=== PATIENT | female | born 2000 | race Caucasian/White ===

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

== ENCOUNTER → 2024-05-28 | Outpatient (CLI) | payer OTHER ==
[2024-05-28 11:18] LABS: Basophils % (A) 0 %; Eosinophils # (A) 0.2 k/uL (0-0.7); Eosinophils % (A) 2 %; HCT 29.5 % (34.0-46.0); HGB 9.9 gm/dL (11.4-16.0); Hypochromasia Slight; Lymphocytes # (A) 2.1 k/uL (1.0-4.8); Lymphocytes % (A) 23 %; MCH 29.4 pg (25.0-35.0); MCHC 33.6 g/dL (31.0-37.0); MCV 87.5 fL (80.0-100.0); Mean Platelet Volume 8.5; Monocytes # (A) 0.6 k/uL (0-1.0); Monocytes % (A) 6 %; Neutrophils # (A) 5.9 k/uL (1.3-7.7); Neutrophils % (A) 65 %; Platelet Count 248 k/uL (150-450); RBC 3.37 m/uL (3.80-5.40); RDW 12.8 % (11.5-15.5); WBC 9.1 k/uL (3.8-10.6)
[2024-05-28 11:44] LABS: Appearance,Urine Clear (Clear); Bilirubin,Urine Negative (Negative); Blood,Urine Negative (Negative); Color,Urine Colorless; Creatinine,Urine Random 27.9 mg/dL; Glucose,Urine (UA) Negative (Negative); Ketones,Urine Negative (Negative); Leukocyte Esterase,Urine Negative (Negative); Nitrite,Urine Negative (Negative); Protein,Urine Negative (Negative); Protein/Creatinine Ratio,Urine 0.573; Specific Gravity,Urine 1.003 (1.001-1.035); Urobilinogen,Urine <2.0 mg/dL (<2.0)
[2024-05-28 11:45] LABS: ALT 17 U/L (4-34); AST 24 U/L (14-36); African American GFR (CKD) >90 (>60 ml/min/1.73 sqM); Blood Urea Nitrogen 5 mg/dL (7-17); LDH 164 U/L (120-246); Non-African American GFR(CKD) >90 (>60 ml/min/1.73 sqM); Uric Acid 4.4 mg/dL (3.7-7.4)
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
[2024-05-28 12:09] VITALS: BP 142/95; PULSE 120; RESP 18; TEMP 97.1
== END ==
LOC: FBPOP 10:08
PROVIDERS: ATTEND Obstetrics & Gynecology
DX: O41.8X31 Other specified disorders of amniotic fluid and membranes, third trimester, fetus 1 (principal); Z3A.37 37 weeks gestation of pregnancy
CPT/HCPCS: 59025; 84112; 82570; 84156; 82565; 83615; 84450; 84460; 84520; 84550; 85025; 81003; 76815; G0463; 99213

== ENCOUNTER 2024-06-01 00:03 | Inpatient (IN) | payer OTHER ==
[2024-06-01] MEDS ORDERED: TERBUTALINE 1 MG/ML VIAL SQ PRN (00:44)
[2024-06-01] MEDS ORDERED: miSOPROStoL 200 MCG TAB PO PRN (00:44)
[2024-06-01] MEDS ORDERED: METHYLERGONOVINE 0.2 MG/ML 1 ML AMP IM PRN (00:44)
[2024-06-01] MEDS ORDERED: TRANEXAMIC 1,000 MG/100ML-NACL 1,000 MG in EMPTY BAG 1 BAG IV PRN (00:44)
[2024-06-01] MEDS ORDERED: miSOPROStoL 200 MCG TAB RECTAL PRN (00:44)
[2024-06-01] MEDS ORDERED: OXYTOCIN 10 UNIT/ML 1 ML VIAL IM PRN (00:44)
[2024-06-01] MEDS ORDERED: CARBOPROST TROMETHAMINE 250 MCG/ML 1 ML AMP IM PRN (00:44)
[2024-06-01] MEDS: NALBUPHINE 10 MG/ML (10 ML MDV) IV PRN (01:51)
[2024-06-01] MEDS: LACTATED RINGERS 1,000 ML IV SCH (01:54)
[2024-06-01 01:58] LABS: Basophils % (A) 0 %; Eosinophils # (A) 0.1 k/uL (0-0.7); Eosinophils % (A) 1 %; HCT 28.8 % (34.0-46.0); HGB 9.4 gm/dL (11.4-16.0); Lymphocytes # (A) 2.6 k/uL (1.0-4.8); Lymphocytes % (A) 25 %; MCH 28.1 pg (25.0-35.0); MCHC 32.4 g/dL (31.0-37.0); MCV 86.5 fL (80.0-100.0); Mean Platelet Volume 8.2; Monocytes # (A) 0.6 k/uL (0-1.0); Monocytes % (A) 6 %; Neutrophils # (A) 6.9 k/uL (1.3-7.7); Neutrophils % (A) 64 %; Platelet Count 263 k/uL (150-450); RBC 3.33 m/uL (3.80-5.40); RDW 12.8 % (11.5-15.5); WBC 10.7 k/uL (3.8-10.6)
[2024-06-01 02:03] LABS: ALT 17 U/L (4-34); AST 25 U/L (14-36); African American GFR (CKD) >90 (>60 ml/min/1.73 sqM); Blood Urea Nitrogen 5 mg/dL (7-17); LDH 191 U/L (120-246); Non-African American GFR(CKD) >90 (>60 ml/min/1.73 sqM); Uric Acid 4.1 mg/dL (3.7-7.4)
[2024-06-01 02:09] VITALS: RESP 16
[2024-06-01 02:09] LABS: INR 0.9 (<1.2); Partial Thromboplastin Time 22.2 sec (22.0-30.0); Prothrombin Time 9.9 sec (10.0-12.5)
[2024-06-01 02:50] LABS: Creatinine,Urine Random 47.9 mg/dL; Protein/Creatinine Ratio,Urine 0.355
[2024-06-01 03:02] LABS: Appearance,Urine Clear (Clear); Bilirubin,Urine Negative (Negative); Blood,Urine Negative (Negative); Color,Urine Colorless; Glucose,Urine (UA) Negative (Negative); Ketones,Urine Negative (Negative); Leukocyte Esterase,Urine Trace (Negative); Nitrite,Urine Negative (Negative); PH, Urine 6.5 (5.0-8.0); Protein,Urine Negative (Negative); RBC,Urine 1 /hpf (0-5); Specific Gravity,Urine 1.006 (1.001-1.035); Squamous Epithelial Cell,Urine <1 /hpf (0-4); Urobilinogen,Urine <2.0 mg/dL (<2.0); WBC,Urine 8 /hpf (0-5)
--- NOTE | 2024-06-01 06:44 | P.HPOB ---
History of Present Illness H&P Date: 06/01/24 Chief Complaint: Leaking of fluid Ms. Rivera is a 23 year old at 38 weeks and 0 days with EDC of 06/15/24 by LMP consistent with 15 week US who presents with SROM with clear amniotic fluid and regular uterine contractions. The has been essentially uncomplicated aside from elevated blood pressures noted in the 37th week of . Today when she presents she has elevated blood pressures with a few intermittent severe-range blood pressures. She is asymptomatic and denies headache, visual disturbances, and RUQ pain. PIH labs are within normal limits aside from a urine P:C of 0.3. The fetus is estimated in the 52%ile based on a 36 week growth US. work-up: blood type O positive, antibody screen negative, rubella immune, VDRL non-reactive, HBsAg negative, HIV negative, HCV Ab non-reactive, gonorrhea negative, chlamydia negative, 1 hour GTT wnl, GBS negative. Past Medical History Past Medical History: No Reported History Additional Past Medical History / Comment(s): "excruciating pain intermittently before and after eating." History of Any Multi-Drug Resistant Organisms: None Reported Past Surgical History: Adenoidectomy, Tonsillectomy Past Anesthesia/Blood Transfusion Reactions: No Reported Reaction Past Psychological History: No Psychological Hx Reported Smoking Status: Never smoker Past Alcohol Use History: None Reported Past Drug Use History: None Reported - Past Family History Mother Family Medical History: No Reported History Medications and Allergies Home Medications Medication Instructions Recorded Confirmed Type Vit No.179/Iron/Folic 1 tab PO ONCE 05/28/24 06/01/24 History [ Tablet] Allergies Allergy/AdvReac Type Severity Reaction Status Date / Time No Known Allergies Allergy Verified 05/28/24 10:17 Exam Vital Signs Temp Pulse Resp BP Pulse Ox 06/01/24 01:40 98.1 F 102 H 16 158/90 99 06/01/24 00:30 98.1 F 113 H 16 158/90 97 Intake and Output 05/31/24 05/31/24 06/01/24 14:59 22:59 06:59 Other: # Voids 1 Weight 68.492 kg Focused physical exam is performed. This is a healthy-appearing in no apparent distress. Breathing is non-labored. Abdomen is gravid and non-tender. Cervical exam is /-1 on admission per OB RN. Extremities non-tender and non-edematous. heart tones are Category I and tocometer is graphing contractions every 2-4 minutes. Results Result Diagrams: 06/01/24 01:06/01/24: Abnormal Lab Results - Last 24 Hours (Table) 06/01/24 06/01/24 06/01/24 Range/Units 01:16 : 01: WBC 10.7 H (3.8-10.6) k/uL RBC 3.33 L (3.80-5.40) m/uL Hgb 9.4 L (11.4-16.0) gm/dL Hct 28.8 L (34.0-46.0) % PT 9.9 L (10.0-12.5) sec Fibrinogen 619 H (200-500) mg/dL BUN (7-17) mg/dL Ur Leukocyte Esterase Trace H (Negative) Urine WBC 8 H (0-5) /hpf 06/01/24 Range/Units 01:27 WBC (3.8-10.6) k/uL RBC (3.80-5.40) m/uL Hgb (11.4-16.0) gm/dL Hct (34.0-46.0) % PT (10.0-12.5) sec Fibrinogen (200-500) mg/dL BUN 5 L (7-17) mg/dL Ur Leukocyte Esterase (Negative) Urine WBC (0-5) /hpf Assessment and Plan Assessment: 23 year old at 38 weeks with SROM Plan: Admit, clear liquid diet, nubain or epidural prn, continuous EFM and tocometer.
[2024-06-01] MEDS ORDERED: diphenhydrAMINE 50 MG/ML 1 ML VIAL IVP PRN ×2 (07:56)
[2024-06-01] MEDS ORDERED: SIMETHICONE 80 MG CHEWABLE PO PRN (07:56)
[2024-06-01] MEDS ORDERED: LANOLIN CREAM 1 GM TUBE TOPICAL PRN (07:56)
[2024-06-01] MEDS ORDERED: HYDROCORTISONE 2.5% RECTAL CREAM 30 GM TUBE RECTAL PRN (07:56)
[2024-06-01] MEDS ORDERED: diphenhydrAMINE 25 MG CAP PO PRN (07:56)
[2024-06-01] MEDS ORDERED: BENZOCAINE/MENTHOL SPRAY 1 GM/SPRAY AEROSOL TOPICAL PRN (07:56)
[2024-06-01] MEDS ORDERED: diphenhydrAMINE 50 MG CAP PO PRN (07:56)
[2024-06-01] MEDS ORDERED: ZOLPIDEM 5 MG TAB PO PRN (07:56)
--- NOTE | 2024-06-01 07:56 | P.PROBDLV ---
Vaginal Delivery Note - . Vaginal Delivery Note: DATE OF SERVICE: 06/01/2024 PROCEDURE: Normal Vaginal Delivery ATTENDING: Dr. Rani Palacios MD ESTIMATED BLOOD LOSS: 200 mL FINDINGS: VMI, Apgars 9/9. Weight 7 pounds (3170 grams) PROCEDURE: Ms. Rivera is a 23 year old at 38 weeks presenting to labor and delivery for spontaneous rupture of membranes. The has been complicated by gestational hypertension that first developed a few days ago. For further details, please review the admitting H&P. The patient was completely dilated at 715. She pushed effectively with category I heart tones. A viable male infant was delivered at 737. The infant was placed on the maternal abdomen and bulb suctioned. The was noted to be spontaneously crying. Cord was clamped and cut after a 60-second delay. The infant was handed off to the pediatric team. Placenta was delivered whole with gentle cord traction at 740. Oxytocin was started to facilitate uterine tone. Uterine fundus was found to be firm and below the umbilicus upon fundal massage. Thorough examination of the cervix, vagina, periurethral area, and perineum revealed a small first degree laceration that was infiltrated with lidocaine and repaired with 3-0 Vicryl in a figure of eight fashion. The patient is stable and allowed to begin the bonding process.
[2024-06-01] MEDS: OXYTOCIN 30 UNITS/500 ML NS 30 UNIT in SALINE 1 500ML.BAG IV SCH (08:15)
[2024-06-01] MEDS: LIDOCAINE 0.5% (PF) 5 MG/ML (50 ML SDV) SQ PRN (09:08)
[2024-06-01] MEDS: IBUPROFEN 800 MG TAB PO SCH (10:47)
[2024-06-01] MEDS: SENNOSIDES-DOCUSATE SODIUM 1 EACH TAB PO SCH (17:34)
[2024-06-01] MEDS: ACETAMINOPHEN TAB 500 MG TAB PO SCH (22:52)
[2024-06-02 06:55] LABS: Eosinophils % (A) 1 %; HCT 26.3 % (34.0-46.0); HGB 8.8 gm/dL (11.4-16.0); Hypochromasia Slight; Lymphocytes % (A) 22 %; MCH 29.3 pg (25.0-35.0); MCHC 33.6 g/dL (31.0-37.0); MCV 87.3 fL (80.0-100.0); Mean Platelet Volume 8.2; Monocytes % (A) 7 %; Neutrophils % (A) 67 %; Platelet Count 258 k/uL (150-450); RBC 3.01 m/uL (3.80-5.40); RDW 13.1 % (11.5-15.5); WBC 15.2 k/uL (3.8-10.6)
[2024-06-02 06:56] LABS: Basophils % (A) 0 %; Eosinophils # (A) 0.1 k/uL (0-0.7); Lymphocytes # (A) 3.4 k/uL (1.0-4.8); Neutrophils # (A) 10.1 k/uL (1.3-7.7)
[2024-06-02 08:36] VITALS: BP 128/76; PULSE 109; TEMP 98
--- NOTE | 2024-06-02 11:50 | P.DS ---
Providers Date of admission: 06/01/24 00:43 Expected date of discharge: 06/02/24 Attending physician: Sumi Vanessa Primary care physician: Stated None - Discharge Diagnosis(es) (1) Normal spontaneous vaginal delivery Current Visit: Yes Status: Acute Hospital Course: Patient is a 23-year-old 1 para 0 admitted at 38-0/7 weeks by good dating parameters. She is admitted with documented spontaneous rupture of membranes for clear fluid. Her was complicated by recent onset of elevated blood pressures. There was no evidence of superimposed preeclampsia. On labor and delivery, all signs were reassuring with a category 1 heart rate tracing. Group B strep status is negative. She ultimately progressed through the active phase of labor to complete and pushed to a normal spontaneous vaginal delivery of a viable 7 pound 0 ounce baby boy with Apgars of 9 at 1 minute and 9 at 5 minutes. Her course was unremarkable with vital signs remaining stable and her temperature was afebrile throughout. She was deemed stable for discharge on day #1 and was discharged home to follow-up in the office in 6 weeks time routinely. Discharge instructions included calling for any significantly increased bleeding or foul-smelling lochia, significantly increased fever or abdominal pain, perineal complaints, breast complaints, or anything else that concerned her. She was additionally instructed to have nothing in the vagina for at least 6 weeks time to include intercourse. She understood her instructions and agrees to follow-up as noted above. Discharge medications included continued vitamins as she has opted to breast-feed. She was otherwise to use [id number] analgesic pain medications as needed. Maternal blood type is O+ and rubella status is immune. Procedures: #1. Normal spontaneous vaginal delivery #2. Repair of perineal laceration Patient Condition at Discharge: Stable Plan - Discharge Summary New Discharge Prescriptions: No Action Vit No.179/Iron/Folic [ Tablet] 1 tab PO ONCE Discharge Medication List Vit No.179/Iron/Folic [ Tablet] 1 tab PO ONCE 05/28/24 [History] Follow up Appointment(s)/Referral(s): Rani Palacios MD [STAFF PHYSICIAN] - 6 Weeks Discharge Disposition: HOME SELF-CARE
== END 2024-06-02 15:28 | disposition home or self-care (01) | DRG 560 ==
LOC: FBPOP 00:03 → 4FBP 00:43
PROVIDERS: ADMIT Obstetrics & Gynecology; ATTEND Obstetrics & Gynecology
PROC: 10E0XZZ Delivery of Products of Conception, External Approach (ICD-10-PCS; principal; 2024-06-01)
PROC: 0HQ9XZZ Repair Perineum Skin, External Approach (ICD-10-PCS; 2024-06-01)
PROC: 3E033VJ Introduction of Other Hormone into Peripheral Vein, Percutaneous Approach (ICD-10-PCS; 2024-06-01)
DX: O42.02 Full-term premature rupture of membranes, onset of labor within 24 hours of rupture (principal); O70.0 First degree perineal laceration during delivery; Z37.0 Single live birth; Z3A.38 38 weeks gestation of pregnancy
CPT/HCPCS: 59025; 81001; 82565; 82570; 83615; 84112; 84156; 84450; 84460; 84520; 84550; 85025; 85384; 85610; 85730; 86850; 86900; 86901; 99213